=== PATIENT | male | born 1965 | race Caucasian/White ===

== ENCOUNTER → 2024-07-08 08:46 | Outpatient (BNVA) | payer OTHER, SELFPAY | PROVIDERS: PCP Family Medicine; Visit Provider Internal Medicine Rheumatology | DX: M25.50 Pain in unspecified joint (principal); Z79.899 Other long term (current) drug therapy; Z71.85 Encounter for immunization safety counseling; M06.00 Rheumatoid arthritis without rheumatoid factor, unspecified site; M81.0 Age-related osteoporosis without current pathological fracture | CPT/HCPCS: 36415; 80076; 82306; 82565; 85025; 85651; 86140; 86200; 86431; 86480; 86704; 86803; 87340; 99204 ==

== ENCOUNTER 2024-09-17 15:35 | Outpatient (CLI) | payer OTHER, SELFPAY ==
[2024-09-17 16:00] LABS: Basophils % 0.3 %; Hematocrit 53.3 % (37-53); Lymphocytes # 0.9 10^3/uL (0.8-4.8); Lymphocytes % 8.8 %; Mean Corpuscular Hemoglobin 31.7 pg (27-33); Mean Platelet Volume 11.2 fL (7.4-10.4); Monocytes # 0.7 10^3/uL (0.2-0.9); Monocytes % 6.3 %; Neutrophils % 83.8 %; Nucleated Red Blood Cells % 0 %; Platelet Count 197 10^3/cmm (157-399); Red Blood Count 5.55 10^6/uL (3.85-5.65); Red Cell Distribution Width 13.9 % (12.1-15.1); White Blood Count 10.62 10^3/uL (3.29-11.43)
[2024-09-17 16:03] LABS: Erythrocyte Sedimentation Rate 1 mm/hr (0-10)
[2024-09-17 16:55] LABS: Alanine Aminotransferase 26 U/L (0-41); Albumin Level 4.4 g/dL (3.5-5.2); Alkaline Phosphatase 73 U/L (40-130); Aspartate Amino Transferase 17 U/L (0-40); Bilirubin Direct 0.22 mg/dL (0.00-0.30); Glomerular Filtration Rate 76.5 mL/min (90-130); Total Bilirubin 0.5 mg/dL (0.15-1.2); Total Protein 7.4 g/dL (6.6-8.7)
== END 2024-09-17 15:36 | disposition home or self-care (01) ==
LOC: LAB 15:36
PROVIDERS: PCP Family Medicine; Visit Provider Internal Medicine Rheumatology
DX: Z79.899 Other long term (current) drug therapy (principal)
CPT/HCPCS: 36415; 80076; 82565; 83520; 85025; 85651; 86140

== ENCOUNTER → 2024-10-01 14:32 | Outpatient (BNVA) | payer OTHER, SELFPAY | PROVIDERS: PCP Family Medicine; Visit Provider Internal Medicine Rheumatology | DX: M75.00 Adhesive capsulitis of unspecified shoulder (principal); M25.511 Pain in right shoulder; M25.512 Pain in left shoulder; M25.519 Pain in unspecified shoulder | CPT/HCPCS: 20610; J1010; J9999 ==

== ENCOUNTER 2024-10-13 14:25 | Outpatient (CLI) | payer OTHER, SELFPAY ==
[2024-10-13 15:05] LABS: Hematocrit 51.8 % (37-53); Hemoglobin 16.50 g/dL (11.27-16.99); Mean Corpuscular HGB Conc 31.9 g/dL (30-55); Mean Corpuscular Hemoglobin 30.3 pg (27-33); Mean Corpuscular Volume 95.2 fl (82-101); Nucleated Red Blood Cells % 0 %; Platelet Count 144 10^3/cmm (157-399); Red Blood Count 5.44 10^6/uL (3.85-5.65); White Blood Count 6.24 10^3/uL (3.29-11.43)
[2024-10-13 15:23] LABS: Alanine Aminotransferase 23 U/L (0-41); Albumin Level 4.0 g/dL (3.5-5.2); Alkaline Phosphatase 57 U/L (40-130); Aspartate Amino Transferase 18 U/L (0-40); Globulin 2.6 g/dL (1.3-4.6); Total Protein 6.6 g/dL (6.6-8.7)
== END 2024-10-13 14:26 | disposition home or self-care (01) ==
PROVIDERS: PCP Family Medicine; Visit Provider Internal Medicine Rheumatology
DX: Z79.899 Other long term (current) drug therapy (principal)
CPT/HCPCS: 20610; 36415; 80076; 82565; 85025; 85651; 86140

== ENCOUNTER 2024-11-20 13:09 | Outpatient (CLI) | payer OTHER, SELFPAY ==
[2024-11-20 14:18] LABS: Hematocrit 46.0 % (37-53); Hemoglobin 15.30 g/dL (11.27-16.99); Mean Corpuscular HGB Conc 33.3 g/dL (30-55); Mean Corpuscular Hemoglobin 31.2 pg (27-33); Mean Corpuscular Volume 93.7 fl (82-101); Nucleated Red Blood Cells % 0 %; Platelet Count 144 10^3/cmm (157-399); Red Blood Count 4.91 10^6/uL (3.85-5.65); White Blood Count 3.62 10^3/uL (3.29-11.43)
[2024-11-20 14:44] LABS: Alanine Aminotransferase 23 U/L (0-41); Albumin Level 4.2 g/dL (3.5-5.2); Alkaline Phosphatase 63 U/L (40-130); Aspartate Amino Transferase 22 U/L (0-40); Globulin 2.6 g/dL (1.3-4.6); Total Protein 6.8 g/dL (6.6-8.7)
== END 2024-11-20 13:10 | disposition home or self-care (01) ==
LOC: LAB 13:12
PROVIDERS: PCP Family Medicine; Visit Provider Internal Medicine Rheumatology
DX: Z79.899 Other long term (current) drug therapy (principal)
CPT/HCPCS: 36415; 80076; 82565; 85025; 85651; 86140